=== PATIENT | female | born 1990 | race Caucasian/White ===

== ENCOUNTER 2021-10-03 11:09 | Emergency (ER) | payer OTHER, MEDICAID, SELFPAY ==
[2021-10-03 11:19] VITALS: BP 105/62; PULSE 118; RESP 18; TEMP 36.6; O2SAT 100; BMI 27.4
--- NOTE | 2021-10-03 14:51 | ED.SKABFB ---
HPI - Skin/Abscess/Foreign Bdy <ANAYA Ordaz - Last Filed: 10/03/21 15:43> General Chief complaint: Skin/Abscess/Foreign Body Stated complaint: Thinks staph infection Time Seen by Provider: 10/03/21 14:34 Source: patient Mode of arrival: Ambulatory History of Present Illness HPI narrative: This is a 31-year-old female with history of abscess in her left axilla two weeks ago who presents to the emergency department complaining swelling in her suprapubic region, erythema, and concern for abscess with drainage. Patient states that it started approximately four days ago. She states that she finished a course of antibiotics for the abscess in her left axilla, states it was a staph infection, denies any allergy to antibiotics or resistant to antibiotics that she knows of. She denies any dysuria, abnormal vaginal discharge, states that is very painful and she has difficulty walking. 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 Related Data Home Medications Medication Instructions Recorded Confirmed albuterol sulfate 90 mcg/actuation 1 puff INH #0 ea 12/29/15 aerosol inhaler (Ventolin HFA) vitamin-ferrous fumarate 1 cap PO QDAY ##0 12/07/16 65 mg iron-folic acid 1 mg capsule (Mynatal) Previous Rx's Medication Instructions Recorded hydrocodone 5 mg-acetaminophen 325 1 tab PO BID PRN pain #7 tabs 10/03/21 mg tablet ibuprofen 600 mg tablet 600 mg PO Q8H PRN pain #14 tabs 10/03/21 Review of Systems <ANAYA Ordaz - Last Filed: 10/03/21 15:43> Review of Systems Narrative: General: denies fever, chills, endorses anxiety as the reason for her tachycardia and pain Head/Neck: denies headache, neck pain Eyes: denies visual changes, eye pain Cardio: denies chest pain, palpitations Respiratory: denies shortness of breath, cough GI: denies abdominal pain, nausea, vomiting, or diarrhea : denies dysuria, hematuria or flank pain MSK: denies new joint pain, muscle weakness or swelling Skin: denies rash, endorses swelling and pain in her groin with concern for abscess Neuro: denies numbness, tingling, dizziness Patient History <ANAYA Ordaz - Last Filed: 10/03/21 15:43> Social History Smoking Status: Current every day smoker Smoking Status: Current every day smoker tobacco type: cigarettes Substance Use Type: methamphetamine Exam <ANAYA Ordaz - Last Filed: 10/03/21 15:43> Narrative Exam Narrative: Independently reviewed vitals signs and nursing notes. General: cooperative, comfortable, in no acute distress, well groomed, afebrile, anxious Head: atraumatic, symmetrical facial expressions Neck: supple Eyes: equal round and reactive, EOMI, conjunctiva normal Nose: nares patent, no rhinorrhea Mouth/Throat: moist mucus membranes Cardiovascular: regular rate and tachycardic rhythm, no peripheral edema, warm extremities Respiratory: normal effort, able to speak in complete sentences, no audible wheezing, stridor, or rales. No retractions or tachypnea. GI: abdomen soft, nontender to palpation, nondistended, no masses, no exquisite tenderness with exam, without guarding or rebound. MSK: moves all extremities, neurovascularly intact, no weakness, normal tone Skin: brisk capillary refill, palpable 2 cm fluctuant fluid pocket in her suprapubic region, tender to palpation, with purulence drainage Neuro: normal speech and cognition, A&O x3 Psych: mental status is grossly normal, congruent mood, normal affect, pleasant and cooperative Initial Vital Signs Initial Vital Signs: Vital Signs Temperature 97.8 F 10/03/21 11:19 Pulse Rate 118 H 10/03/21 11:19 Respiratory Rate 18 10/03/21 11:19 Blood Pressure 105/62 10/03/21 11:19 Pulse Oximetry 100 10/03/21 11:19 Oxygen Delivery Method 10/03/21 11:19 <Dagoberto Cid MD - Last Filed: 10/11/21 03:38> Initial Vital Signs Initial Vital Signs: Vital Signs Temperature 97.8 F 10/03/21 11:19 Pulse Rate 118 H 10/03/21 11:19 Respiratory Rate 18 10/03/21 11:19 Blood Pressure 105/62 10/03/21 11:19 Pulse Oximetry 100 10/03/21 11:19 Oxygen Delivery Method 10/03/21 11:19 Procedures <ANAYA Ordaz - Last Filed: 10/03/21 15:43> Abscess I/D I&D #1: Site: other (Suprapubic/vulvar abscess, very superficial with active drainage, approximately 2 cm in diameter, surrounding erythema) Sedation/analgesia: none Local Anesthetic: lidocaine 2% Amount of anesthesia used (mL): 2 Technique: needle aspiration Amount of fluid expressed (mL): 5 Irrigation: No Packing used?: none Complications: other (none) Course <ANAYA Ordaz - Last Filed: 10/03/21 15:43> Orders Ordered: Discontinued Medications Hydrocodone Bitart/Acetaminophen (Hydrocodone/Acet 5/325 Tablet) 1 tab PO NOW ONE Stop: 10/03/21 14:48 Last Admin: 10/03/21 15:13 Dose: 1 tab Documented By: TA Doxycycline Hyclate (Doxycycline Hyclate 100 Mg Tablet) 100 mg PO NOW ONE Stop: 10/03/21 14:50 Last Admin: 10/03/21 15:13 Dose: 100 mg Documented By: TA Ketorolac Tromethamine (Ketorolac 30 Mg/Ml Vial) 15 mg IM NOW ONE Stop: 10/03/21 14:48 Last Admin: 10/03/21 15:13 Dose: 15 mg Documented By: TA Lidocaine HCl (Lidocaine 2% Inj Mdv) 10 ml SUBCUT NOW ONE Stop: 10/03/21 14:44 Last Admin: 10/03/21 15:14 Dose: 10 ml Documented By: CTS Vital Signs Vital signs: Vital Signs - 8 hr 10/03/21 11:19 10/03/21 15:22 Temperature 97.8 F Pulse Rate 118 H 104 H Respiratory Rate 18 16 Blood Pressure 105/62 110/75 Pulse Oximetry 100 97 Oxygen Delivery Method Room Air Room Air <Dagoberto Cid MD - Last Filed: 10/11/21 03:38> Orders Ordered: Discontinued Medications Hydrocodone Bitart/Acetaminophen (Hydrocodone/Acet 5/325 Tablet) 1 tab PO NOW ONE Stop: 10/03/21 14:48 Last Admin: 10/03/21 15:13 Dose: 1 tab Documented By: CTS Doxycycline Hyclate (Doxycycline Hyclate 100 Mg Tablet) 100 mg PO NOW ONE Stop: 10/03/21 14:50 Last Admin: 10/03/21 15:13 Dose: 100 mg Documented By: TA Ketorolac Tromethamine (Ketorolac 30 Mg/Ml Vial) 15 mg IM NOW ONE Stop: 10/03/21 14:48 Last Admin: 10/03/21 15:13 Dose: 15 mg Documented By: TA Lidocaine HCl (Lidocaine 2% Inj Mdv) 10 ml SUBCUT NOW ONE Stop: 10/03/21 14:44 Last Admin: 10/03/21 15:14 Dose: 10 ml Documented By: CTS Vital Signs Vital signs: Vital Signs - 8 hr 10/03/21 11:19 10/03/21 15:22 Temperature 97.8 F Pulse Rate 118 H 104 H Respiratory Rate 18 16 Blood Pressure 105/62 110/75 Pulse Oximetry 100 97 Oxygen Delivery Method Room Air Room Air MDM - Skin/Abscess/Foreign Bdy <ANAYA Ordaz - Last Filed: 10/03/21 15:43> MDM Narrative Medical decision making narrative: This is a 31-year-old female with history of four days of groin pain, swelling, and redness and a history of meth use with abscesses. She finished a course of doxycycline approximately one week ago for left axilla abscess two weeks ago. She states that she had two small abscesses in between this course and now this one in her groin. She has been doing warm compresses and it was starting to drain already, approximately 2 cm in diameter, erythematous, mild amount of cellulitis surrounding. A small bleb of lidocaine was used where it is draining, and needle aspiration of some of the drainage was successful for purulence drainage and clear fluid. Wound culture was obtained and is pending, patient was given a dose of doxycycline, Toradol, and hydrocodone in the emergency department for her pain. Encouraged her to follow-up with her OBGYN this does not resolve or for a recheck after seven days. Encouraged to continue warm compresses. Patient is appropriate and amenable to discharge home. Vital signs are stable on repeat examination is unremarkable. Patient has been informed of results. Patient has been given strict return to ER precautions for any new or worsening symptoms. Patient understands to follow up closely with outpatient providers as instructed. Patient understands plan and agrees to discharge home. All questions and concerns answered at this time. Discharge Plan Departure Patient Disposition: Home Clinical Impression: Abscess or cellulitis of groin Instructions: DI for Cellulitis -- Adult, DI for Skin Abscess Activity Restrictions/Additional Instructions: *You have been diagnosed with an abscess and skin infection called cellulitis of your groin. Please take these antibiotics twice a day for the next seven days, follow-up with your OBGYN in seven days for a recheck to see if you need any additional antibiotics. Please avoid methamphetamines, this is likely was causing these skin abscesses and infections for you. Continue warm compresses frequently throughout the day to express the purulence drainage. Thank you for trusting us with your care, I hope you feel better soon. Remember to stay hydrated, drink plenty of water, do not take any ibuprofen today you can start taking this tomorrow. *What to do: *Please continue to take your regular medications as directed. [ x] New medication prescriptions sent to your pharmacy: [ [facility]] [ ] New medication written as a paper prescription [ ] No new medications given *Please follow up with your primary care provider in 2-3 days, call for an appointment. Let them know you were seen in the Emergency Department and that we asked that you be seen for follow-up. We will electronically transmit a record of today's note if your PCP is in our system *If you do not have a primary care provider please contact [phone] to establish care with one of the [facility] primary care providers. *Return to Emergency Department if you should have any new, worsening or concerning symptoms, such as [fever greater than 101F, chills, worsening pain, persistent vomiting or other bothersome symptoms] Prescriptions: New hydrocodone-acetaminophen 5-325 mg tablet 1 tab PO BID PRN (Reason: pain) Qty: 7 0RF ibuprofen 600 mg tablet 600 mg PO Q8H PRN (Reason: pain) Qty: 14 0RF No Action albuterol sulfate [Ventolin HFA] 90 MCG/PUFF HFA aerosol inhaler 1 puff INH Qty: 0 vit-iron fum-folic ac [Mynatal] 1 EACH capsule 1 cap PO QDAY Qty: 0 Visit Report Forms: Patient Portal/API <Dagoberto Cid MD - Last Filed: 10/11/21 03:38> [facility] Cos[facility]asonature Attestation: I was immediately available in the department for consultation. This documentation has been reviewed and I agree with assessment and plan. Supervised by Dagoberto Cid MD
[2021-10-03] MEDS: HYDROCODONE/ACET 5/325 TABLET 1 TAB PO (15:13)
[2021-10-03] MEDS: KETOROLAC 30 MG/ML VIAL 15 MG IM (15:13)
[2021-10-03] MEDS: DOXYCYCLINE HYCLATE 100 MG TABLET PO (15:13)
[2021-10-03] MEDS: LIDOCAINE 2% INJ MDV 10 ML SUBCUT (15:14)
[2021-10-03 15:22] VITALS: BP 110/75; PULSE 104; RESP 16; O2SAT 97
== END 2021-10-03 15:23 | disposition home or self-care (01) ==
PROVIDERS: Emergency Provider Nurse Practitioner Critical Care Medicine
DX: L02.214 Cutaneous abscess of groin (principal); L03.314 Cellulitis of groin
CPT/HCPCS: 10060; 87070; 87075; 87077; 87147; 87186; 87205; 96372; 99283; J1885

== ENCOUNTER 2023-05-04 11:08 | Emergency (ER) | payer OTHER, MEDICAID, SELFPAY ==
[2023-05-04 11:14] VITALS: BP 132/86; PULSE 89; RESP 18; TEMP 36.6; O2SAT 100; BMI 27.4
--- NOTE | 2023-05-04 11:28 | ED.URI ---
HPI - URI/Sore Throat <ANAYA Hurt - Last Filed: 05/04/23 11:39> General Chief Complaint: Upper Respiratory Symptoms Stated Complaint: THINKS BRONCHITIS Time Seen by Provider: 05/04/23 11:20 Source: patient Mode of arrival: Ambulatory History of Present Illness HPI Narrative: 33-year-old female, daily smoker with history of asthma, presents to the emergency department with suspected bronchitis x1 week. Patient states he has been having difficulty time sleeping due to the coughing. Patient has been taking daytime Mucinex, that is helped with some of her symptoms. Patient has been using her inhaler with minimal relief and is running low. Related Data Home Medications Medication Instructions Recorded Confirmed albuterol sulfate 90 mcg/actuation 1 puff INH #0 ea 12/29/15 aerosol inhaler (Ventolin HFA) vitamin-ferrous fumarate 1 cap PO QDAY ##0 12/07/16 65 mg iron-folic acid 1 mg capsule (Mynatal) Previous Rx's Medication Instructions Recorded hydrocodone 5 mg-acetaminophen 325 1 tab PO BID PRN pain #7 tabs 10/03/21 mg tablet ibuprofen 600 mg tablet 600 mg PO Q8H PRN pain #14 tabs 10/03/21 albuterol sulfate 90 mcg/actuation 2 puff inhalation Q4-6H PRN 05/04/23 aerosol inhaler (Ventolin HFA) shortness of breath or wheezing #8.5 grams benzonatate 150 mg capsule 150 mg PO TID PRN cough #30 caps 05/04/23 prednisone 50 mg tablet 50 mg PO DAILY 5 days #5 tabs 05/04/23 Allergies Allergy/AdvReac Type Severity Reaction Status Date / Time No Known Drug Allergies Allergy Verified 05/04/23 11:18 Review of Systems <ANAYA Hurt - Last Filed: 05/04/23 11:39> Review of Systems Narrative: Narrative: See HPI. GENERAL: Denies chills, fatigue, fever, sweats. HEENT: Denies sinus pain, sore throat, difficulty swallowing, dizziness. Endorses ear fullness. RESPIRATORY: Denies dyspnea, wheezing, sputum. Endorses cough and congestion. CARDIOVASCULAR: Denies chest pain, palpitations, edema. GASTROINTESTINAL: Denies nausea, vomiting, abdominal pain, diarrhea, constipation. : Denies dysuria, frequency, incontinence, hematuria, urinary retention, flank pain. MSK: Denies weakness, joint pain, or bony pain. SKIN: Denies rash, skin lesions, or pruritis. NEUROLOGIC: Denies weakness, dizziness, headache, numbness, confusion. Patient History <ANAYA Hurt - Last Filed: 05/04/23 11:39> Social History Smoking Status: Current every day smoker Smoking Status: Current every day smoker tobacco type: cigarettes Substance Use Type: former substance user and marijuana Exam <ANAYA Hurt - Last Filed: 05/04/23 11:39> Narrative Exam Narrative: Exam Narrative: GENERAL: This is a well-nourished, well-developed patient, in no acute distress. HEAD: Atraumatic. Normocephalic. EYES: Pupils equal round and reactive.No scleral icterus, injection or drainage. ENT: Nose without bleeding, purulent drainage. Throat without erythema, tonsillar hypertrophy, positive postnasal exudate. Uvula midline. Airway patent. TMs and canals clear, with effusion. No sinus tenderness. NECK: Trachea midline. No JVD or lymphadenopathy. Nontender. CARDIOVASCULAR: Regular rate and rhythm without murmurs, peripheral pulses intact, cap refill <2 sec. RESPIRATORY: Breath sounds equal and clear bilaterally. No wheezes, rales, or rhonchi. Positive cough. No increased respiratory effort. No accessory muscle use. MSK: Moves all extremities. Normal range of motion, no clubbing or edema. Neurovascularly intact. NEURO: A&O x 3. SKIN: Warm, dry, no rashes or lesions noted. Initial Vital Signs Initial Vital Signs: Vital Signs Temperature 97.9 F 05/04/23 11:14 Pulse Rate 89 05/04/23 11:14 Respiratory Rate 18 05/04/23 11:14 Blood Pressure 132/86 05/04/23 11:14 Pulse Oximetry 100 05/04/23 11:14 Oxygen Delivery Method Room Air 05/04/23 11:14 Reviewed <Amadeo Woods DO - Last Filed: 05/04/23 13:19> Initial Vital Signs Initial Vital Signs: Vital Signs Temperature 97.9 F 05/04/23 11:14 Pulse Rate 89 05/04/23 11:14 Respiratory Rate 18 05/04/23 11:14 Blood Pressure 132/86 05/04/23 11:14 Pulse Oximetry 100 05/04/23 11:14 Oxygen Delivery Method Room Air 05/04/23 11:14 Course <ANAYA Hurt - Last Filed: 05/04/23 11:39> Vital Signs Vital signs: Vital Signs - 8 hr 05/04/23 11:14 Temperature 97.9 F Pulse Rate 89 Respiratory Rate 18 Blood Pressure 132/86 Pulse Oximetry 100 Oxygen Delivery Method Room Air <Amadeo Woods DO - Last Filed: 05/04/23 13:19> Vital Signs Vital signs: Vital Signs - 8 hr 05/04/23 11:14 Temperature 97.9 F Pulse Rate 89 Respiratory Rate 18 Blood Pressure 132/86 Pulse Oximetry 100 Oxygen Delivery Method Room Air MDM - URI/Sore Throat <ANAYA Hurt - Last Filed: 05/04/23 11:39> Differential Diagnosis Differential diagnosis: Likely upper respiratory infection, viral infection and bronchitis MDM Narrative Medical decision making narrative: 33-year-old female with cough and congestion. Assessment was encouraging, lungs were clear to auscultation and SpO2 100%. Suspect this is a viral upper respiratory infection coupled with a asthma exacerbation. Will treat the asthma exacerbation with albuterol inhaler and five-day course of prednisone. Will prescribe a short course of Tessalon Perles. Recommended daily Claritin and Flonase nasal spray for sinus drainage and Eustachian tube blockage. Discussed plan of care and return precautions with patient, who verbalized understanding and was agreeable with course of action. Discharge Plan Departure Patient Disposition: Home Clinical Impression: Upper respiratory infection Qualifiers: URI type: unspecified viral URI Qualified Code(s): J06.9 - Acute upper respiratory infection, unspecified Activity Restrictions/Additional Instructions: *You have been diagnosed with a upper respiratory infection. Your lungs sound clear and your oxygenation was 100%. I suspect this is a combination sinus drainage and asthma exacerbation. For the asthma exacerbation, we will treat with a albuterol inhaler and steroids. For the sinus drainage, recommend daily Claritin and Flonase nasal spray. For any worsening symptoms that include chest pain, difficulty breathing, etc. please return to the emergency department. *What to do: *Please continue to take your regular medications as directed. [x ] New medication prescriptions sent to your pharmacy: [[facility] ] [ ] New medication written as a paper prescription [ ] No new medications given *Please follow up with your primary care provider in 2-3 days, call for an appointment. Let them know you were seen in the Emergency Department and that we ask that you be seen in follow up. We will electronically transmit a record of today's note if your PCP is in our system *If you do not have a primary care provider please contact the [facility] Resource line at [phone]. They will ask some questions about your medical history and help get you set up with a doctor in the community. ? Return to ER if you should have any new, worsening or concerning symptoms, such as worsening pain, severe headache, confusion, chest pain, difficulty breathing, fever greater than 101 F, shaking chills, persistent vomiting to the point that you cannot drink fluids, or other new or worsening symptoms. Prescriptions: New albuterol sulfate [Ventolin HFA] 90 mcg/actuation HFA aerosol inhaler 2 puff inhalation Q4-6H PRN (Reason: shortness of breath or wheezing) Qty: 8.5 0RF prednisone 50 mg tablet 50 mg PO DAILY 5 Days Qty: 5 0RF benzonatate 150 mg capsule 150 mg PO TID PRN (Reason: cough) Qty: 30 0RF No Action albuterol sulfate [Ventolin HFA] 90 MCG/PUFF HFA aerosol inhaler 1 puff INH Qty: 0 vit-iron fum-folic ac [Mynatal] 1 EACH capsule 1 cap PO QDAY Qty: 0 hydrocodone-acetaminophen 5-325 mg tablet 1 tab PO BID PRN (Reason: pain) Qty: 7 0RF ibuprofen 600 mg tablet 600 mg PO Q8H PRN (Reason: pain) Qty: 14 0RF Referrals: Miscellaneous,Doctor, MD [Primary Care Provider] - Stand Alone Forms: Patient Portal/API ED Sign-out <Amadeo Woods, DO - Last Filed: 05/04/23 13:19> [facility] Dr Woods Co-Sign Statement: I was available for consultation during this patient's emergency department visit. This chart is signed by myself for administrative purposes only. I did not have direct contact with this patient during this visit. They were seen independently by the APC.
--- NOTE | 2023-05-05 10:36 | PC.NURSE ---
pharmacy called to clarify prescription: Dr. Mullen changed to Benzonate 100 mg capsules.
== END 2023-05-04 11:38 | disposition home or self-care (01) ==
PROVIDERS: Emergency Provider Registered Nurse
DX: J06.9 Acute upper respiratory infection, unspecified (principal); J45.901 Unspecified asthma with (acute) exacerbation; F17.210 Nicotine dependence, cigarettes, uncomplicated
CPT/HCPCS: 99281; 99283

== ENCOUNTER 2023-07-05 07:50 | Emergency (ER) | payer OTHER, MEDICAID, SELFPAY ==
[2023-07-05 07:55] VITALS: BP 123/93; PULSE 108; RESP 18; TEMP 36.7; O2SAT 98; BMI 25.8
[2023-07-05 08:01] VITALS: PULSE 112; O2SAT 99
--- NOTE | 2023-07-05 08:14 | DI.RAD.S_ITS ---
PROCEDURE: XR CHEST 2V INDICATIONS: cough TECHNIQUE: 2 views of the chest were acquired. COMPARISON: None. FINDINGS: Surgical changes and devices: None. Lungs and pleura: Lungs are clear. No pleural effusions or pneumothorax. Peribronchial cuffing. Mediastinum: Mediastinal contours are normal. Heart size is normal. Bones and chest wall: No suspicious bony abnormalities. Soft tissues appear unremarkable. IMPRESSION: Peribronchial cuffing, typically indicating infectious or inflammatory bronchitis. Dictated by: Nelson Mora M.D. on 07/05/2023 at 8:41 Approved by: Nelson Mora M.D. on 07/05/2023 at 8:42
[2023-07-05 08:30] VITALS: BP 115/70; PULSE 107; O2SAT 99
--- NOTE | 2023-07-05 08:32 | ED.URI ---
HPI - URI/Sore Throat General Chief Complaint: Shortness of Breath/Dyspnea Stated Complaint: cough Time Seen by Provider: 07/05/23 07:59 Source: patient Mode of arrival: Ambulatory History of Present Illness HPI Narrative: Patient is a 33-year-old female history of asthma presenting today with increasing shortness of breath. She feels like it has been ongoing for awhile but over last couple days she has more of a sputum. He ran out of her albuterol as well. She might be having some body aches no known fever. No palpitations. She reports that she ran of out of her albuterol inhaler. Related Data Home Medications Medication Instructions Recorded Confirmed albuterol sulfate 90 mcg/actuation 1 puff INH #0 ea 12/29/15 aerosol inhaler (Ventolin HFA) vitamin-ferrous fumarate 1 cap PO QDAY ##0 12/07/16 65 mg iron-folic acid 1 mg capsule (Mynatal) Previous Rx's Medication Instructions Recorded hydrocodone 5 mg-acetaminophen 325 1 tab PO BID PRN pain #7 tabs 10/03/21 mg tablet ibuprofen 600 mg tablet 600 mg PO Q8H PRN pain #14 tabs 10/03/21 albuterol sulfate 90 mcg/actuation 2 puff inhalation Q4-6H PRN 05/04/23 aerosol inhaler (Ventolin HFA) shortness of breath or wheezing #8.5 grams benzonatate 150 mg capsule 150 mg PO TID PRN cough #30 caps 05/04/23 albuterol sulfate 90 mcg/actuation 2 puff inhalation Q4-6H PRN 07/05/23 aerosol inhaler shortness of breath or wheezing #8.5 grams prednisone 20 mg tablet 40 mg (2 x 20 mg) PO DAILY #10 tabs 07/05/23 Allergies Allergy/AdvReac Type Severity Reaction Status Date / Time No Known Drug Allergies Allergy Verified 07/05/23 08:11 Patient History Social History Smoking Status: Current every day smoker Smoking Status: Current every day smoker tobacco type: cigarettes Substance Use Type: former substance user and marijuana Exam Initial Vital Signs Initial Vital Signs: Vital Signs Temperature 98.0 F 07/05/23 07:55 Pulse Rate 108 H 07/05/23 07:55 Respiratory Rate 18 07/05/23 07:55 Blood Pressure 123/93 H 07/05/23 07:55 Pulse Oximetry 98 07/05/23 07:55 Oxygen Delivery Method Room Air 07/05/23 07:55 GENERAL: Alert 33-year-old female and in no acute distress. HEENT: Head atraumatic,EOMI, pupils reactive, face symmetric, moist mucous membranes CARDIOVASCULAR: Regular rate and rhythm without murmurs, rubs or gallops. RESPIRATORY: Breath sounds equal bilaterally, no wheezes rales or rhonchi. Speaks in full sentences no respiratory distress ABDOMEN: Soft, nontender. Normoactive bowel sounds all 4 quadrants. No guarding or rebound. EXTREMITIES: Normal range of motion, no clubbing or edema. Neurovascularly intact NEUROLOGICAL: Alert and oriented x4.Normal gait and speech. SKIN: Warm, dry, no laceration, no petechiae, no rashes or lesions. Course Orders Ordered: ED Orders 07/05/23 08:00 Sputum Culture Stat 07/05/23 08:14 Chest [XR chest 2V] Stat Discontinued Medications Albuterol/Ipratropium (Albuterol/Ipratropium 3 Ml Ampul) 3 ml INH NOW ONE Stop: 07/05/23 08:15 Last Admin: 07/05/23 08:33 Dose: 3 ml Documented By: KEVIN Vital Signs Vital signs: Vital Signs - 8 hr 07/05/23 07:55 07/05/23 08:01 07/05/23 08:30 Temperature 98.0 F Pulse Rate 108 H 112 H Respiratory Rate 18 Blood Pressure 123/93 H 115/70 Pulse Oximetry 98 99 Oxygen Delivery Method Room Air Oxygen Flow Rate Fraction of Inspired Oxygen 07/05/23 08:30 07/05/23 08:34 07/05/23 09:00 Temperature Pulse Rate 107 H 102 H Respiratory Rate 18 Blood Pressure 108/68 Pulse Oximetry 99 99 Oxygen Delivery Method Room Air Oxygen Flow Rate 0 Fraction of Inspired Oxygen 21 07/05/23 09:00 07/05/23 09:17 07/05/23 09:17 Temperature Pulse Rate 104 H 109 H Respiratory Rate Blood Pressure 122/74 Pulse Oximetry 99 100 Oxygen Delivery Method Room Air Room Air Oxygen Flow Rate Fraction of Inspired Oxygen MDM - URI/Sore Throat Imaging Data Chest x-ray: Radiologist's Impression: PROCEDURE: XR CHEST 2V INDICATIONS: cough TECHNIQUE: 2 views of the chest were acquired. COMPARISON: None. FINDINGS: Surgical changes and devices: None. Lungs and pleura: Lungs are clear. No pleural effusions or pneumothorax. Peribronchial cuffing. Mediastinum: Mediastinal contours are normal. Heart size is normal. Bones and chest wall: No suspicious bony abnormalities. Soft tissues appear unremarkable. IMPRESSION: Peribronchial cuffing, typically indicating infectious or inflammatory bronchitis. Dictated by: Nelson Mora M.D. on 07/05/2023 at 8:41 MDM Narrative Medical decision making narrative: Patient 33-year-old female history of asthma presenting today with increased sputum production and shortness of breath after running out of her albuterol inhaler. She has minimal wheezing if any exam no conversational dyspnea or sign of acute respiratory distress. She is given albuterol treatment which she reports did help some. X-ray does show bronchial cuffing but no actual pneumonia. Sputum sample is sent because she gave us quite a bit with minimal trying. I think likely a viral infection. We will give her prescriptions for inhaler #65: Appropriate Treatment for Patients with URI x The patient was diagnosed with upper respiratory infection and was not prescribed or dispensed an antibiotic. [SATISFIES MIPS PERFORMANCE] [] The patient has competing comorbid condition within the last 12 months. The comorbid condition was [] (e.g., neutropenia, cystic fibrosis, chronic bronchitis, pulmonary edema, respiratory failure, rheumatoid lung disease). [MIPS PERFORMANCE EXCEPTION/EXCLUSION] [] The patient is already on antibiotics, or has taken them within the last 30 days. [MIPS PERFORMANCE EXCEPTION/EXCLUSION] [] The patient had a competing diagnosis of [] (e.g. acute otitis media, chronic sinusitis, cellulitis, UTI, etc.). [MIPS PERFORMANCE EXCEPTION/EXCLUSION] [] The patient was diagnosed with upper respiratory infection and was prescribed or dispensed an antibiotic. [DOES NOT SATISFY MIPS PERFORMANCE] Discharge Plan Departure Patient Disposition: Home Clinical Impression: Upper respiratory infection Instructions: DI for Viral Upper Respiratory Infection -- Adult Activity Restrictions/Additional Instructions: *You have been diagnosed with upper respiratory infection *What to do: Likely viral syndrome need for antibiotics, chest x-ray was clear *Continue to take medications as directed Albuterol 1-2 puffs every 4 hours if needed for coughing and shortness of breath Prednisone 40 mg once a day for 5 days *Follow up with your primary care provider in 2-3 days or call [phone] *Return to ER if you should have increasing shortness of breath fever chills or any new, worsening or concerning symptoms Prescriptions: New prednisone 20 mg tablet 40 mg PO DAILY Qty: 10 0RF albuterol sulfate 90 mcg/actuation HFA aerosol inhaler 2 puff INHALATION Q4-6H PRN (Reason: shortness of breath or wheezing) Qty: 8.5 0RF No Action albuterol sulfate [Ventolin HFA] 90 MCG/PUFF HFA aerosol inhaler 1 puff INH Qty: 0 vit-iron fum-folic ac [Mynatal] 1 EACH capsule 1 cap PO QDAY Qty: 0 hydrocodone-acetaminophen 5-325 mg tablet 1 tab PO BID PRN (Reason: pain) Qty: 7 0RF ibuprofen 600 mg tablet 600 mg PO Q8H PRN (Reason: pain) Qty: 14 0RF albuterol sulfate [Ventolin HFA] 90 mcg/actuation HFA aerosol inhaler 2 puff inhalation Q4-6H PRN (Reason: shortness of breath or wheezing) Qty: 8.5 0RF benzonatate 150 mg capsule 150 mg PO TID PRN (Reason: cough) Qty: 30 0RF Referrals: Miscellaneous,Doctor, MD [Primary Care Provider] - Stand Alone Forms: Patient Portal/API
[2023-07-05] MEDS: ALBUTEROL/IPRATROPIUM 3 ML AMPUL INH (08:33)
[2023-07-05 08:34] VITALS: PULSE 102; RESP 18; O2SAT 99
[2023-07-05 09:00] VITALS: BP 108/68; PULSE 104; O2SAT 99
[2023-07-05 09:17] VITALS: BP 122/74; PULSE 109; O2SAT 100
== END 2023-07-05 09:21 | disposition home or self-care (01) ==
PROVIDERS: Emergency Provider Emergency Medicine
DX: J06.9 Acute upper respiratory infection, unspecified (principal); F17.200 Nicotine dependence, unspecified, uncomplicated
CPT/HCPCS: 71046; 87070; 87205; 94640; 99283

== ENCOUNTER 2024-05-30 15:04 | Emergency (ER) | payer OTHER, MEDICAID, SELFPAY ==
[2024-05-30 15:13] VITALS: BP 112/70; PULSE 83; RESP 16; TEMP 36.6; O2SAT 100; BMI 28.2
[2024-05-30 16:33] LABS: Appearance Urine UA CLEAR; Bilirubin Urine UA NEGATIVE (NEGATIVE); Color Urine UA YELLOW; Glucose Urine UA NEGATIVE (Negative); Ketones Urine UA NEGATIVE (NEGATIVE); Leukocyte Esterase Urine UA NEGATIVE (NEGATIVE); Nitrite Urine UA NEGATIVE (Negative); Occult Blood Urine UA NEGATIVE (Negative); Protein Urine UA NEGATIVE (Negative); Urobilinogen Urine UA 0.2 E.U./dL (0.2)
--- NOTE | 2024-05-30 16:33 | DI.US.S_ITS ---
PROCEDURE: US OB <= 14 WEEKS FETUS INDICATIONS: , known IUD, abd pain OUTSIDE/PRIOR DATING DATA: Last menstrual period (LMP): Unknown. LMP-based estimated date of delivery (ELY): Unknown. First dating scan (date and location): 05/30/2024. Estimated date of delivery (ELY) from first dating scan: 01/10/2025. TECHNIQUE: Real-time scanning was performed of the fetus and maternal pelvic organs, with image documentation. Endovaginal scanning was also performed to better visualize the fetus and maternal ovaries. COMPARISON: None. FINDINGS: Embryo: 1.5 cm corresponds with a 7 week 6 day gestation Heart rate: 165 Maternal organs: Ovaries 2.9 cm right adnexal corpus luteum cyst. No evidence of intrauterine device IMPRESSION: Single live intrauterine consistent with a 7 week 6 day gestation. No ultrasound evidence of intrauterine device Approved by: Yvon Marley M.D. on 05/30/2024 at 17:01
[2024-05-30 17:02] LABS: Add Manual Diff / Slide Review NO; Basophils Absolute Auto 100 /uL (0-100); Basophils Percent Auto 0.7 % (0-2); Eosinophils Absolute Auto 200 /uL (0-450); Eosinophils Percent Auto 2.2 % (2-4); Hematocrit 36.9 % (36-46); Hemoglobin 12.2 g/dL (12.0-16.0); Lymphocytes Absolute Auto 2300 /uL (1100-4500); Lymphocytes Percent Auto 21.4 % (25-40); Mean Corpuscular HGB Conc 33.1 % (30-36); Mean Corpuscular Hemoglobin 28.4 PG (26-34); Mean Corpuscular Volume 85.9 fL (80-100); Monocytes Absolute Auto 800 /uL (0-900); Monocytes Percent Auto 7.5 % (3-14); Neutrophils Absolute Auto 7300 /uL (1500-7000); Neutrophils Percent Auto 68.2 % (50-75); Platelet Count 369 X10^3/uL (150-400); Red Blood Cell Count 4.29 X10^6/uL (4.0-5.2); Red Cell Distribution Width 13.5 % (11.6-14.8); White Blood Cell Count 10.7 X10^3/uL (4.5-11.0)
[2024-05-30 17:04] LABS: Bacteria Urine None Seen; Culture Indicated Urine Cult Not Indicated; RBC Urine 0-1/HPF (0-5/HPF); Squamous Epithelial Cell Urine 1-5 /HPF (0-5/HPF); Urine Volume 10mL (spun); WBC Urine 0-1/HPF (0-5/HPF)
[2024-05-30 17:28] LABS: Alanine Aminotransferase 51 IU/L (<35); Albumin 4.1 g/dL (3.5-5.0); Albumin Globulin Ratio 1.5 (1.0-2.8); Alkaline Phosphatase 70 U/L (38-126); Aspartate Aminotransferase 37 IU/L (14-36); BUN Creatinine Ratio 24.1 (6-22); Bilirubin Total 0.2 mg/dL (0.2-1.3); Blood Urea Nitrogen 13 mg/dL (7-17); Calcium 8.9 mg/dL (8.4-10.2); Carbon Dioxide 25 mmol/L (22-32); Chloride 101 mmol/L (98-107); Estimated Glomerular Filt Rate > 60 mL/min (>60); Globulin 2.7 g/dL (1.7-4.1); Glucose 76 mg/dL (70-100); Lipase 67 U/L (23-300); Potassium 3.9 mmol/L (3.4-5.1); Sodium 135 mmol/L (137-145); Total Protein 6.8 g/dL (6.3-8.2)
[2024-05-30 18:09] LABS: HCG Quantitative /Beta subunit 110690 mIU/mL; HEMOLYSIS < 15 (0-50)
--- NOTE | 2024-05-30 19:00 | CM.SWNOTE ---
ED SMOKING PIPE MOUNTER Note SMOKING PIPE MOUNTER receives consult due to concern for patient's housing insecurity. Patient presents to ED due to concern for issue with her IUD and feeling unwell. Per labs, patient is positive for . Patient does not have PCP listed, patient has Medicaid Coordinated care insurance. SMOKING PIPE MOUNTER enters room to meet with patient once she is placed in a room. Present in room is patient's son. Patient presents as pleasant, A/Ox4. Patient states that she is staying at the [facility] with her son and has been there since 4 days ago. Patient reports that she can be there up to a month. Patient states she has an apartment in [place] but cannot return there, patient states she left her boyfriend and is trying to get a restraining order. Patient states she just found out she is so she is planning to navigate that. Patient states that she just applied for [facility]. Patient states that she has been to the [facility] at [facility] in the past but was told they do not accept returning clients. Patient states that she plans to work with her son's school to identify [facility] needs for patient's son to access school. Patient states she receives food stamps and has a vehicle. SMOKING PIPE MOUNTER provides patient with housing resources and basic needs and food resources. Patient denies any other needs at this time. Plan: Patient to d/c to home upon medical clearance at [facility], patient to f/u with [facility] services and f/u with resources provided. ARUN Spencer
[2024-05-30] MEDS: ACETAMINOPHEN 325 MG TABLET 975 MG PO (19:07)
--- NOTE | 2024-05-30 19:12 | PC.NURSE ---
iv placed by another nurse
--- NOTE | 2024-05-30 19:27 | ED_ITS ---
HPI - Female Genitourinary General Chief complaint: Urogenital-Female Stated complaint: something wrong with iud, doesnt feel good Time Seen by Provider: 05/30/24 16:33 Source: patient Mode of arrival: Ambulatory History of Present Illness HPI Narrative: Patient is a 34-year-old female who presents for pelvic discomfort. She states that she had a D&C and IUD placed 2 proximally 2 months ago by her OBGYN. She states that she feels like ?something is wrong with it states that she has been feeling nauseous and just ?not feeling right. She states that she has not having any other symptoms such as vaginal bleeding dysuria, Related Data Home Medications Medication Instructions Recorded Confirmed albuterol sulfate 90 mcg/actuation 1 puff INH #0 ea 12/29/15 aerosol inhaler (Ventolin HFA) vitamin-ferrous fumarate 1 cap PO QDAY ##0 12/07/16 65 mg iron-folic acid 1 mg capsule (Mynatal) Previous Rx's Medication Instructions Recorded hydrocodone 5 mg-acetaminophen 325 1 tab PO BID PRN pain #7 tabs 10/03/21 mg tablet ibuprofen 600 mg tablet 600 mg PO Q8H PRN pain #14 tabs 10/03/21 albuterol sulfate 90 mcg/actuation 2 puff inhalation Q4-6H PRN 05/04/23 aerosol inhaler (Ventolin HFA) shortness of breath or wheezing #8.5 grams benzonatate 150 mg capsule 150 mg PO TID PRN cough #30 caps 05/04/23 albuterol sulfate 90 mcg/actuation 2 puff inhalation Q4-6H PRN 07/05/23 aerosol inhaler shortness of breath or wheezing #8.5 grams prednisone 20 mg tablet 40 mg (2 x 20 mg) PO DAILY #10 tabs 07/05/23 Allergies Allergy/AdvReac Type Severity Reaction Status Date / Time No Known Drug Allergies Allergy Verified 07/05/23 08:11 Patient History tobacco type: cigarettes Exam Initial Vital Signs Initial Vital Signs: Vital Signs Temperature 98 F 05/30/24 15:13 Pulse Rate 83 05/30/24 15:13 Respiratory Rate 16 05/30/24 15:13 Blood Pressure 112/70 05/30/24 15:13 Pulse Oximetry 100 05/30/24 15:13 Oxygen Delivery Method Room Air 05/30/24 15:13 Course Orders Ordered: ED Orders 05/30/24 15:18 Consult to BALL ROLLING MACHINE OPERATOR - Dog Daycare Provider Stat 05/30/24 16:12 Urinalysis and Microscopic Stat 05/30/24 16:33 US OB <= 14 weeks fetus Stat 05/30/24 16:45 ABO RH Type Stat CBC Auto Diff [Complete Blood Count AUTO DIFF] Stat CMP [Comprehensive Metabolic Panel] Stat HCG Quantitative /Beta subunit Stat Lipase Stat Discontinued Medications Acetaminophen (Acetaminophen 325 Mg Tablet) 975 mg PO NOW ONE Stop: 05/30/24 16:35 Last Admin: 05/30/24 19:07 Dose: 975 mg Documented By: RL Vital Signs Vital signs: Vital Signs - 8 hr 05/30/24 15:13 Temperature 98 F Pulse Rate 83 Respiratory Rate 16 Blood Pressure 112/70 Pulse Oximetry 100 Oxygen Delivery Method Room Air MDM - Female Genitourinary Lab Data 05/30/24 16:45 05/30/24 16:45 Labs: Lab Results 05/30/24 05/30/24 Range/Units 16:12 16:45 WBC 10.7 (4.5-11.0) X10^3/uL RBC 4.29 (4.0-5.2) X10^6/uL Hgb 12.2 (12.0-16.0) g/dL Hct 36.9 (36-46) % MCV 85.9 (80-100) fL MCH 28.4 (26-34) PG MCHC 33.1 (30-36) % RDW 13.5 (11.6-14.8) % Plt Count 369 (150-400) X10^3/uL Neut % (Auto) 68.2 (50-75) % Lymph % (Auto) 21.4 L (25-40) % [place] % (Auto) 7.5 (3-14) % Eos % (Auto) 2.2 (2-4) % Baso % (Auto) 0.7 (0-2) % Neut # (Auto) 7300 H (9896-7990) /uL Lymph # (Auto) 2300 (3509-0233) /uL [place] # (Auto) 800 (0-900) /uL Eos # (Auto) 200 (0-450) /uL Baso # (Auto) 100 (0-100) /uL Sodium 135 L (137-145) mmol/L Potassium 3.9 (3.4-5.1) mmol/L Chloride 101 (98-107) mmol/L Carbon Dioxide 25 (22-32) mmol/L BUN 13 (7-17) mg/dL Creatinine 0.54 (0.52-1.04) mg/dL Estimated GFR > 60 (>60) mL/min BUN/Creatinine Ratio 24.1 H (6-22) Glucose 76 (70-100) mg/dL Calcium 8.9 (8.4-10.2) mg/dL Total Bilirubin 0.2 (0.2-1.3) mg/dL AST 37 H (14-36) IU/L ALT 51 H (<35) IU/L Alkaline Phosphatase 70 (38-126) U/L Total Protein 6.8 (6.3-8.2) g/dL Albumin 4.1 (3.5-5.0) g/dL Globulin 2.7 (1.7-4.1) g/dL Albumin/Globulin Ratio 1.5 (1.0-2.8) Lipase 67 (23-300) U/L HCG, Quant 725261 mIU/mL Urine Color Yellow Urine Appearance Clear Urine pH 6.0 (4.5-8.0) Ur Specific [place] 1.020 (1.000-1.035) Urine Protein Negative (Negative) Urine Glucose (UA) Negative (Negative) g/dL Urine Ketones Negative (NEGATIVE) Urine Occult Blood Negative (Negative) Urine Nitrate Negative (Negative) Urine Bilirubin Negative (NEGATIVE) Urine Urobilinogen 0.2 (0.2) E.U./dL Ur Leukocyte Esterase Negative (NEGATIVE) Urine RBC 0-1/hpf (0-5/HPF) Urine WBC 0-1/hpf (0-5/HPF) Ur Squamous Epith Cells 1-5 /hpf (0-5/HPF) Urine Bacteria None seen (None) Ur Culture Indicated? Cult not indicated Vol Urine Centrifuged 10ml (spun) Blood Type A Positive Point of Care Testing Test Results Positive Urine Dip Bedside Urine Glucose Negative Bedside Urine Bilirubin - Negative Bedside Urine Ketone - Negative Urine Specific [place] 1.020 Bedside Urine Occult Blood - Negative Bedside Urine pH 6.0 Bedside Urine Protein - Negative Bedside Urine Urobilinogen - Negative Bedside Urine Nitrite - Negative Bedside Urine Leukocytes +/- 15 Esterase Discharge Plan Departure Clinical Impression: Normal first confirmed Activity Restrictions/Additional Instructions: Please follow up with OBGYN Please read the discharge instructions sheet carefully and bring all papers to all doctor follow-up visits, as it may contain information that your doctor may want to see. Disease processes change and evolve, if your symptoms worsen or if you develop any new symptoms that are concerning to you please return for evaluation. Your evaluation today does not show any evidence of any life- threatening/serious illnesses requiring admission to the hospital or surgery. Please follow-up with your doctor for re-evaluation in approximately 1 day. Seek immediate medical attention for any worrisome symptoms. *If you do not have a primary care provider please contact the [facility] Resource line at [phone]. They will ask some questions about your medical history and help get you set up with a doctor in the community. Prescriptions: No Action albuterol sulfate [Ventolin HFA] 90 MCG/PUFF HFA aerosol inhaler 1 puff INH Qty: 0 vit-iron fum-folic ac [Mynatal] 1 EACH capsule 1 cap PO QDAY Qty: 0 hydrocodone-acetaminophen 5-325 mg tablet 1 tab PO BID PRN (Reason: pain) Qty: 7 0RF ibuprofen 600 mg tablet 600 mg PO Q8H PRN (Reason: pain) Qty: 14 0RF albuterol sulfate [Ventolin HFA] 90 mcg/actuation HFA aerosol inhaler 2 puff inhalation Q4-6H PRN (Reason: shortness of breath or wheezing) Qty: 8.5 0RF benzonatate 150 mg capsule 150 mg PO TID PRN (Reason: cough) Qty: 30 0RF prednisone 20 mg tablet 40 mg PO DAILY Qty: 10 0RF albuterol sulfate 90 mcg/actuation HFA aerosol inhaler 2 puff INHALATION Q4-6H PRN (Reason: shortness of breath or wheezing) Qty: 8.5 0RF Referrals: Miscellaneous,Doctor, MD [Primary Care Provider] - Dorie Pedro DO [Physician] - As soon as possible
[2024-05-30 20:07] VITALS: BP 101/65; PULSE 94; RESP 18; O2SAT 100
== END 2024-05-30 20:07 | disposition home or self-care (01) ==
PROVIDERS: Emergency Medicine; Emergency Provider Student in an Organized Health Care Education/Training Program
DX: R10.2 Pelvic and perineal pain (principal); Z33.1 Pregnant state, incidental; Z97.5 Presence of (intrauterine) contraceptive device
CPT/HCPCS: 76801; 80053; 81001; 81003; 81025; 83690; 84702; 85025; 86900; 86901; 99283; 99284